=== PATIENT | male | born 1940 | race Caucasian/White ===

== ENCOUNTER 2017-01-24 10:37 | Outpatient (CLI) | payer MEDICARE, OTHER ==
[2017-01-24 11:39] LABS: Hemoglobin A1c 7.2 % (4.0-6.0)
[2017-01-24 11:40] LABS: ALT (SGPT) 17 U/L (8-55); AST (SGOT) 15 U/L (5-34); Albumin 4.2 g/dL (3.4-4.8); Alkaline Phosphatase 80 U/L (40-150); Anion Gap 15 mmol/L (10-20); BUN (Urea Nitrogen) 45 mg/dL (8.4-25.7); Bilirubin, Total 0.4 mg/dL (0.2-1.2); Calc. Creatinine Clearance 0 mL/min (70-130); Carbon Dioxide 22 mmol/L (23-31); Cardiac Risk 2.8 (Less than 4.5); Chloride 103 mmol/L (98-107); Cholesterol 102 mg/dl (< 200 Desired); Estimated GFR-MDRD 42; Globulin 2.4 g/dL (2.4-3.5); Glucose 140 mg/dL (83-110); HDL Cholesterol 37 mg/dL (>60 Neg Risk); LDL Cholesterol, Calculated 20 mg/dL; Magnesium 2.4 mg/dL (1.6-2.6); Potassium 5.2 mmol/L (3.5-5.1); Protein, Total 6.6 g/dL (5.8-8.1); Sodium 135 mmol/L (136-145); Triglycerides 223 mg/dL (Less than 150); Uric Acid 4.8 mg/dL (3.5-7.2)
[2017-01-24 12:39] LABS: #Eosinphils 0.1 thou/uL (0.0-0.7); #Lymphocytes 2.2 thou/uL (1.20-3.40); #Monocytes 0.7 thou/uL (0.11-0.59); #Neutrophils 6.1 thou/uL (1.40-6.50); %Basophils 1.4 % (0.0-1.0); %Eosinophils 1.6 % (0.0-10.0); %Lymphocytes 23.8 % (21.0-51.0); %Monocytes 7.1 % (0.0-10.0); Hemoglobin 14.2 g/dL (14.0-18.0); Mean Corpuscular Hemoglobin 34.9 pg (27.0-31.0); Mean Platelet Volume 7.7 fL (7.4-10.4); Platelet Count 219 thou/uL (130-400); RBC Distribution Width 15.2 % (11.5-14.5); Red Blood Cell (RBC) Count 4.08 mill/uL (4.70-6.10); White Blood Cell (WBC) Count 9.2 thou/uL (4.8-10.8)
[2017-01-24 12:40] LABS: #Basophils 0.1 thou/uL (0.0-0.2); Anisocytosis SLIGHT = 6-15 cells (100X) (0-5/hpf); PLT Morphology Comment Appears Adequate
== END 2017-01-24 10:38 | disposition home or self-care (01) ==
LOC: MADLAB 10:37
PROVIDERS: ATTEND Physician Assistant Medical
DX: E78.2 Mixed hyperlipidemia (principal); E11.40 Type 2 diabetes mellitus with diabetic neuropathy, unspecified; I50.42 Chronic combined systolic (congestive) and diastolic (congestive) heart failure; M10.09 Idiopathic gout, multiple sites
CPT/HCPCS: 36415; 80053; 80061; 83036; 83735; 83880; 84550; 85025

== ENCOUNTER 2017-09-09 15:03 | Emergency (ER) | payer MEDICARE, OTHER ==
[~2017-09-09 15:03] MED LIST: EPINEPHrine 1 MG/10 ML Abboject SYRINGE ONE
== END 2017-09-09 17:00 | disposition expired ==
LOC: MADERS 15:03
DX: I46.9 Cardiac arrest, cause unspecified (principal); I25.10 Atherosclerotic heart disease of native coronary artery without angina pectoris; E11.9 Type 2 diabetes mellitus without complications; N40.0 Benign prostatic hyperplasia without lower urinary tract symptoms; E78.5 Hyperlipidemia, unspecified; I11.0 Hypertensive heart disease with heart failure; I50.9 Heart failure, unspecified; Z79.4 Long term (current) use of insulin; Z79.899 Other long term (current) drug therapy
CPT/HCPCS: 36416; 96374; 96375; J0171; J0282